=== PATIENT | female | born 1980 | race Caucasian/White ===

== ENCOUNTER 2024-09-15 00:53 | Emergency (ER) | payer BC, SELFPAY ==
[2024-09-15] VITALS (7 sets, daily range): BP systolic 115–143; BP diastolic 64–89; PULSE 73–83; RESP 18; TEMP 36.8; O2SAT 98–100; BMI 43.9
[2024-09-15 02:41] LABS: Hematocrit 46.1 % (36-47); Lymphocytes % 20.7 %; Mean Corpuscular HGB Conc 31.7 g/dL (30-55); Mean Corpuscular Hemoglobin 26.1 pg (27-33); Mean Corpuscular Volume 82.5 fl (85-98); Mean Platelet Volume 9.2 fL (7.4-10.4); Monocytes # 0.5 10^3/uL (0.2-0.9); Monocytes % 4.8 %; Neutrophils # 7.01 10^3/uL (1.8-7.7); Neutrophils % 74.4 %; Nucleated Red Blood Cells % 0 %; Platelet Count 271 10^3/cmm (157-399); Red Blood Count 5.59 10^6/uL (3.85-5.65); Red Cell Distribution Width 15.5 % (12.1-15.1); White Blood Count 9.42 10^3/uL (3.29-11.43)
[2024-09-15] MEDS: sodium chloride 0.9% 1,000 ML 999 ML IV (02:49)
--- NOTE | 2024-09-15 02:58 | CTR_ITS ---
PROCEDURE INFORMATION: Exam: CT Head Without Contrast Exam date and time: 09/15/2024 3:15 AM Age: 44 years old Clinical indication: Patient HX: C/O dizziness with n/v. ; Additional info: Dizzy TECHNIQUE: Imaging protocol: Computed tomography of the head without contrast. Radiation optimization: All CT scans at this facility use at least one of these dose optimization techniques: automated exposure control; mA and/or kV adjustment per patient size (includes targeted exams where dose is matched to clinical indication); or iterative reconstruction. COMPARISON: No relevant prior studies available. RADIATION DOSE METRICS: Total DLP (mGy-cm): 1289.78 FINDINGS: Brain: No hemorrhage. No mass effect or midline shift. No significant white matter disease. Cerebral ventricles: No ventriculomegaly. Paranasal sinuses: Visualized sinuses are unremarkable. No fluid levels. Mastoid air cells: Visualized mastoid air cells are well aerated. Bones: Unremarkable. No acute fracture. Soft tissues: Unremarkable. CT/CT head wo con* 20201 IMPRESSION: No acute intracranial findings.
--- NOTE | 2024-09-15 02:59 | ED_ITS ---
HPI - Neuro Symptoms/Deficit 2 General: Chief Complaint: Nausea/Vomiting/Diarrhea Stated Complaint: Dizzy/V/ Time Seen by Provider: 09/15/24 02:47 History of Present Illness: 44-year-old female presenting with verti ginous dizziness. This been going on for several days. Seems to wax and wane to some degree. Always worse with movement. She also states she has had some hearing loss in her left ear with some ringing. This is a more chronic thing. Related Data Previous Rx's Medication Instructions Recorded meclizine 25 mg tablet 25 mg PO TID PRN dizziness #90 tabs 09/15/24 NIH stroke score 2 NIHSS: Level Of Consciousness - 1a: 0 Level Of Consciousness Questions - 1b: Both Correct Level Of Consciousness Commands - 1c: Both Correct Best Gaze - 2: Normal Visual Cota - 3: No Visual Loss Facial Palsy - 4: N ormal Motor Arm Right - 5: No Drift Motor Arm Left - 5: No Drift Motor Leg Right - 6: No Drift Motor Leg Left - 6: No Drift Limb Ataxia - 7: A bsent Sensory - 8: Normal Best Language - 9: No Aphasia Dysarthia - 10: Normal Extinction And Inattention - 11: 0 Score: Total Score: 0 Physical Exam 2 Const: COMMON NORMALS: no acute distress GENERAL APPEARANCE: cooperative; not ill appearing and not frail appearing HENMT: COMMON NORMALS: normocephalic, atraumatic and Normal external nose present HEAD & SCALP: normocephalic and atraumatic FACE & SINUS: normal facial exam and face symmetric NOSE: Normal external nose present Eye: COMMON NORMALS: Equal, round and reactive pupils present and EOMs intact bilaterally PUPIL: Yes Equal, round and reactive pupils present Neck/C-Spine: GENERAL: Yes trachea midline Chest: CHEST: Yes Symmetrical chest wall rise Resp: COMMON NORMALS: normal respiratory effort, No retractions, No use of accessory muscles and clear to auscultation bilaterally AUSCULTATION: clear to auscultation bilaterally Cardio: COMMON NORMALS: regular rate and regular rhythm RATE: regular rate RHYTHM: regular rhythm GI: COMMON NORMALS: Normal to inspection, nondistended, normoactive bowel sounds present Extremity: COMMON NORMALS: no pedal edema Neuro: JAYCE COMA SCALE: document GCS findings [place] coma scale eye opening: Spontaneous Jayce coma scale verbal response: Orientated Jayce coma scale motor response: Obey commands [place] coma scale total score: 15 S ENSORY EXAM: Yes extremities (intact) Psych: COMMON NORMALS: speech normal SPEECH: Yes normal speech Skin: COMMON NORMALS: no rashes or lesions noted GENERAL SKIN EXAM: no rashes or lesions noted Course 2 Vital Signs: Vital signs: Vital Signs Temperature 98.2 F 09/15/24 01:30 Pulse Rate 73 09/15/24 05:08 Respiratory Rate 18 09/15/24 01:30 Blood Pressure 122/76 09/15/24 05:08 Pulse Oximetry 98 09/15/24 05:08 Oxygen Delivery Me thod Room Air 09/15/24 04:30 MDM - Neuro Symptoms/Deficit Medical Decision Making NIH stroke scale is 0. The patient does have some mild nystagmus. Dizziness worsens with head position change. Likely BPPV versus M?ni?re's disease. Treat accordingly. Head CT is negative. Other laboratory is not remarkable. Lab Data 09/15/24 02:34 09/15/24 02:[address] 09/15/24 02:58 IMPRESSION: No acute intracranial findings. Laboratory Results WBC 9.42 10^3/uL (3.29-11.43) 09/15/24 02:34 RBC 5.59 10^6/uL (3.85-5.65) 09/15/24 02:34 Hgb 14.60 g/dL (11.27-16.99) 09/15/24 02:34 Hct 46.1 % (36-47) 09/15/24 02:34 MCV 82.5 fl (85-98) L 09/15/24 02:34 MCH 26.1 pg (27-33) L 09/15/24 02:34 MCHC 31.7 g/dL (30-55) 09/15/24 02:34 RDW 15.5 % (12.1-15.1) H 09/15/24 02:34 Plt Count 271 10^3/cmm (157-399) 09/15/24 02:34 MPV 9.2 fL (7.4-10.4) 09/15/24 02:34 Neut % (Auto) 74.4 % 09/15/24 02:34 Lymph % (Auto) 20.7 % 09/15/24 02:34 [place] % (Auto) 4.8 % 09/15/24 02:34 Eos % (Auto) 0.0 % 09/15/24 02:34 Baso % (Auto) 0.0 % 09/15/24 02:34 Neut # (Auto) 7.01 10^3/uL (1.8-7.7) 09/15/24 02:34 Lymph # (Auto) 2.0 10^3/uL (0.8-4.8) 09/15/24 02:34 [place] # (Auto) 0.5 10^3/uL (0.2-0.9) 09/15/24 02:34 Eos # (Auto) 0.0 10^3/uL (0.0-0.8) 09/15/24 02:34 Baso # (Auto) 0.0 10^3/uL (0.0-0.1) 09/15/24 02:34 Nucleated RBC % (auto) 0 % 09/15/24 02:34 Nucleated RBCs # 0.0 /100WBC 09/15/24 02:34 Sodium 139 mmol/L (136-145) 09/15/24 02:34 Potassium 4.0 mmol/L (3.5-5.1) 09/15/24 02:34 Chloride 104 mmol/L (98-107) 09/15/24 02:34 Carbon Dioxide 24 mmol/L (22-29) 09/15/24 02:34 Anion Gap 15.0 (5-19) 09/15/24 02:34 BUN 15 mg/dL (6-20) 09/15/24 02:34 Creatinine 0.5 mg/dL (0.5-0.9) 09/15/24 02:34 GFR Calculation 133.4 mL/min (90-130) H 09/15/24 02:34 Glucose 132 mg/dL (65-115) H 09/15/24 02:34 Calculated Osmolality 291 mOsm/kg (285-295) 09/15/24 02:34 Calcium 9.0 mg/dL (8.5-10.5) 09/15/24 02:34 Total Bilirubin 0.6 mg/dL (0.15-1.2) 09/15/24 02:34 AST 17 U/L (0-32) 09/15/24 02:34 ALT 22 U/L (0-33) 09/15/24 02:34 Alkaline Phosphatase 74 U/L (35-105) 09/15/24 02:34 C-Reactive Protein 4.6 mg/L (0.0-4.9) 09/15/24 02:34 Total Protein 7.3 g/dL (6.6-8.7) 09/15/24 02:34 Albumin 4.6 g/dL (3.5-5.2) 09/15/24 02:34 Globulin 2.7 g/dL (1.3-4.6) 09/15/24 02:34 Lipase 32 U/L (13-60) 09/15/24 02:34 HCG, Qual Negative (Negative) 09/15/24 02:34 Urine Color Yellow (Yellow) 09/15/24 03:07 Urine Appearance Clear (CLEAR) 09/15/24 03:07 Urine pH 7.0 (5-7) 09/15/24 03:07 Ur Specific [place] 1.012 (1.005-1.030) 09/15/24 03:07 Urine Protein Negative (Negative) 09/15/24 03:07 Urine Glucose (UA) 3+ (Normal) H 09/15/24 03:07 Urine Ketones Trace (Negative) 09/15/24 03:07 Urine Blood Negative (Negative) 09/15/24 03:07 Urine Nitrate Negative (Negative) 09/15/24 03:07 Urine Bilirubin Negative (Negative) 09/15/24 03:07 Urine Urobilinogen 0.2 mg/dL (Negative) 09/15/24 03:07 Ur Leukocyte Esterase Negative (Negative) 09/15/24 03:07 Urine RBC 0-2 /hpf (0-2) 09/15/24 03:07 Urine WBC 0-5 /hpf (0-5) 09/15/24 03:07 Ur Squamous Epith Cells 0-5 /hpf (0-5) 09/15/24 03:07 Amorphous Sediment Not Reportable 09/15/24 03:07 Urine Bacteria None seen /hpf (NONE) 09/15/24 03:07 Hyaline Casts 0-4 /lpf H 09/15/24 03:07 All radiology interpretation(s) finalized by discharge Discharge Plan Discharge Patient Disposition: Home Clinical Impression: Vertigo Condition: Stable Prescriptions: New meclizine 25 mg tablet 25 mg PO TID PRN (Reason: dizziness) Qty: 90 0RF Discharge Orders: Discharge ED (Routine); Ordered 09/15/24 Ordered By: Sesar Patel Patient Instructions: Vertigo (ED), Benign Paroxysmal Positional Vertigo (ED), Opioid Safety, Pain Management Activity Restrictions/Additional Instructions: Take meclizine 3 times daily until symptoms improve. Follow-up with your doctor at the beginning of the week, call on Tuesday for an appointment, as further outpatient testing may be needed. Return for vision problems, language problems, speech problems, weakness, other concerning symptoms. Stay hydrated. Coding Level of Care Code ED Fire Alarm Technician for Margret Tong
[2024-09-15 03:01] LABS: HCG, Serum Qual Negative (Negative)
[2024-09-15 03:05] LABS: Alanine Aminotransferase 22 U/L (0-33); Albumin Level 4.6 g/dL (3.5-5.2); Alkaline Phosphatase 74 U/L (35-105); Aspartate Amino Transferase 17 U/L (0-32); Blood Urea Nitrogen 15 mg/dL (6-20); C Reactive Protein 4.6 mg/L (0.0-4.9); Carbon Dioxide 24 mmol/L (22-29); Chloride 104 mmol/L (98-107); Creatinine Clr Calc Pharmacy 165.0997; Globulin 2.7 g/dL (1.3-4.6); Glomerular Filtration Rate 133.4 mL/min (90-130); Glucose 132 mg/dL (65-115); Lipase 32 U/L (13-60); Osmolality Calculated 291 mOsm/kg (285-295); Sodium 139 mmol/L (136-145); Total Bilirubin 0.6 mg/dL (0.15-1.2); Total Protein 7.3 g/dL (6.6-8.7)
[2024-09-15] MEDS: meclizine 25 mg tablet PO (03:16)
[2024-09-15 03:31] LABS: Bilirubin Urine Negative (Negative); Blood Urine Negative (Negative); Glucose Urine UA 3+ (Normal); Ketones Urine Trace (Negative); Leukocyte Esterase Urine Negative (Negative); Nitrate Urine Negative (Negative); Protein Urine Negative (Negative); Specific Gravity, Urine 1.012 (1.005-1.030); Urine Appearance Clear (CLEAR); Urine Color Yellow (Yellow); Urobilinogen Urine 0.2 mg/dL (Negative)
[2024-09-15 03:36] LABS: Add Urine Microscopic? YES; Bacteria Urine None Seen /hpf; Hyaline Casts Urine 0-4 /lpf; RBC Urine 0-2 /hpf (0-2); Squamous Epithelial Cell Urine 0-5 /hpf (0-5); WBC Urine 0-5 /hpf (0-5)
== END 2024-09-15 05:11 | disposition home or self-care (01) ==
PROVIDERS: Emergency Provider Emergency Medicine
DX: R42 Dizziness and giddiness (principal)
CPT/HCPCS: 36415; 70450; 80053; 81001; 83690; 84703; 85025; 86140; 99284; J7030; J8597

== ENCOUNTER 2025-04-23 06:46 | Day surgery (SDC) | payer BC, SELFPAY ==
[2025-04-23 06:59] VITALS: BP 112/77; PULSE 75; RESP 18; TEMP 36.6; O2SAT 98; BMI 43.9
[2025-04-23 07:06] LABS: OR HCG Qualitative Urine Negative (Negative)
[2025-04-23] MEDS: sodium chloride 0.9% 1,000 ML 15 ML IV (07:15)
[2025-04-23 07:18] LABS: Glucose Point of Care 110 mg/dL (70-110)
--- NOTE | 2025-04-23 07:53 | W.PM.OPSFHP ---
Same Day Surgery H&P Indication for Procedure/HPI DATE OF PROCEDURE: April 23, 2025 CHIEF COMPLAINT/INDICATIONFOR SURGICAL PROCEDURE: screening colonoscopy PREOP DIAGNOSIS: screening colonoscopy PLANNED PROCEDURE: Operation Date: 04/23/25 08:00 Proposed Procedures p Colonoscopy 39850 G0105, Z12.11(Not Applicable) - Celio Lawson MD Medications/Allergies* Home Medications ?Medication ?Instructions ?Recorded ?Confirmed ?Type albuterol sulfate 90 mcg/actuation See Rx Instructions .Route 03/04/25 04/18/25 History aerosol inhaler .COMPLEX PRN Shortness Of Breath Or Wheezing bupropion HCl 150 mg 24 hr tablet, 150 mg PO QAM 03/04/25 04/18/25 History extended release (Wellbutrin XL) empagliflozin 25 mg tablet 25 mg PO QAM 03/04/25 04/18/25 History (Jardiance) epinephrine 0.3 mg/0.3 mL 0.3 mg IM ONCE PRN anaphylaxsis 03/04/25 04/18/25 History injection, auto-injector naproxen 500 mg tablet 500 mg PO BID PRN Pain 03/04/25 04/18/25 History rosuvastatin 5 mg tablet (Crestor) 5 mg PO QDAY 03/04/25 04/18/25 History trazodone 50 mg tablet 100 mg PO QDAY 03/04/25 04/18/25 History triamterene 37.5 1 cap PO QAM 03/04/25 04/18/25 History mg-hydrochlorothiazide 25 mg capsule Allergies/Adverse Reactions Allergy/AdvReac Type Severity Reaction Status Date / Time ipratropium (From Atrovent) Allergy ADR-Dizzine Verified 04/23/25 06:56 ss venlafaxine (From Effexor) Allergy ADR-Dizzine Verified 04/23/25 06:56 ss Current Medications: Generic Name Dose Route Start Last Admin Trade Name Freq PRN Reason Stop Dose Admin Sodium Chloride 1,000 mls @ 15 mls/hr 04/23/25 06:47 04/23/25 07:15 Sodium Chloride 0.9% IV 04/24/25 06:46 15 mls/hr .Q24H PRN Administration COLONOSCOPY FLUIDS Pertinent History/Comorbid Conditions* Family History (Updated 03/04/25 @ 08:17 by Mirian Harrill, CT) Diabetes Father Breast cancer Mother Social History Smoking and tobacco/nicotine status: never used tobacco/nicotine Pertinent Exam Findings alert, oriented x 3, clear to auscultation bilaterally, regular rate & rhythm and procedure specific exam findings Abdomen soft, nt, nd Recommendations Risks and benefits of procedure reviewed Surgery/Procedure today Coding Level of Care Code Acute Code for Chg Ran
--- NOTE | 2025-04-23 07:55 | ANES.PREANE2 ---
Pre-Anesthetic Assessment Height/Weight: Height 1.57 m Weight 108.862 kg Temp Pulse Resp BP Pulse Ox O2 Del Method 97.8 F 75 18 112/77 98 Room Air 04/23/25 06:59 04/23/25 06:59 04/23/25 06:59 04/23/25 06:59 04/23/25 06:59 04/23/25 06:59 Preop Diagnosis: screening colonoscopy Operation Date: 04/23/25 08:00 Proposed Procedures p Colonoscopy 00668 G0105, Z12.11(Not Applicable) - Celio Lawson MD Familial anesthetic complications: Unexplained Fever Was Beta Radha taken within 24 hours: N/A Was Clonidine taken within 24 hours: N/A Last intake: Intake Last Liquid Date 04/22/25 Last Liquid Time 23:45 Last Solid Date 04/21/25 Last Solid Time 23:45 Social Alcohol and No tobacco Occasion alcohol and Marijuana gummies Exam alert, oriented x 3, clear to auscultation bilaterally and regular rate & rhythm Airway Submandibular: within normal limits Cervical ROM: within normal limits Mallampati: Class II Dentition: full History/ROS No significant history except as noted and No significant complaints Pulmonary Asthma CV/HEM None reported None reported Hepatic None reported GI None reported Metabolic Diabetes Mellitus Neuropsych Anxiety, Depression and Seizure no seizures x 6 years, fever related, no seizure meds Anesthetic Plan ASA status: 3 Anesthesia: MAC Risk of > 500 ml blood loss (7ml/kg in children): No Medications/Allergies Home Medications ?Medication ?Instructions ?Recorded ?Confirmed ?Last Taken ?Type albuterol sulfate 90 mcg/actuation See Rx Instructions .Route 03/04/25 04/18/25 04/22/25 06:00 History aerosol inhaler .COMPLEX PRN Shortness Of Breath Or Wheezing bupropion HCl 150 mg 24 hr tablet, 150 mg PO QAM 03/04/25 04/18/25 04/22/25 06:00 History extended release (Wellbutrin XL) empagliflozin 25 mg tablet 25 mg PO QAM 03/04/25 04/18/25 04/22/25 06:00 History (Jardiance) epinephrine 0.3 mg/0.3 mL 0.3 mg IM ONCE PRN anaphylaxsis 03/04/25 04/18/25 Unknown History injection, auto-injector naproxen 500 mg tablet 500 mg PO BID PRN Pain 03/04/25 04/18/25 04/22/25 06:00 History rosuvastatin 5 mg tablet (Crestor) 5 mg PO QDAY 03/04/25 04/18/25 04/22/25 06:00 History trazodone 50 mg tablet 100 mg PO QDAY 03/04/25 04/18/25 04/22/25 06:00 History triamterene 37.5 1 cap PO QAM 03/04/25 04/18/25 04/22/25 06:00 History mg-hydrochlorothiazide 25 mg capsule Allergies Allergy/AdvReac Type Severity Reaction Status Date / Time ipratropium (From Atrovent) Allergy ADR-Dizzine Verified 04/23/25 06:56 ss venlafaxine (From Effexor) Allergy ADR-Dizzine Verified 04/23/25 06:56 ss Current Medications Generic Name Dose Route Start Last Admin Trade Name Freq PRN Reason Stop Dose Admin Sodium Chloride 1,000 mls @ 15 mls/hr 04/23/25 06:47 04/23/25 07:15 Sodium Chloride 0.9% IV 04/24/25 06:46 15 mls/hr .Q24H PRN Administration COLONOSCOPY FLUIDS PFSH Anesthesia Family History (Updated 03/04/25 @ 08:17 by LUÍS Kan) Mother Breast cancer Father Diabetes Social History (Updated 03/04/25 @ 08:17 by LUÍS Kan) Smoking and tobacco/nicotine status: never used tobacco/nicotine
[2025-04-23 09:05] VITALS: BP 108/62; PULSE 68; RESP 18; TEMP 36.3; O2SAT 100
--- NOTE | 2025-04-23 09:20 | ANE.PACU2 ---
Inpatient post-anesthesia follow up: Airway intact: Yes Vital signs: Temperature 97.4 F Pulse Rate 68 Respiratory Rate 18 Blood Pressure 108/62 Pulse Oximetry 100 Oxygen Delivery Me thod Room Air Oxygen Flow Rate Fraction of Inspir ed Oxygen Hydration adequate: Yes Nausea and vomiting: No Pain level: 1 Mental status: Baseline
== END 2025-04-23 09:24 | disposition home or self-care (01) ==
PROVIDERS: Anesthesiology; PCP Family Medicine; Visit Provider Student in an Organized Health Care Education/Training Program
PROC: 0DJD8ZZ Inspection of Lower Intestinal Tract, Via Natural or Artificial Opening Endoscopic (ICD-10-PCS; CPT 45378; principal; 2025-04-23 08:00)
DX: Z12.11 Encounter for screening for malignant neoplasm of colon (principal); D12.5 Benign neoplasm of sigmoid colon; E11.9 Type 2 diabetes mellitus without complications; F41.9 Anxiety disorder, unspecified; F32.A Depression, unspecified; Z79.899 Other long term (current) drug therapy; Z88.8 Allergy status to other drugs, medicaments and biological substances
CPT/HCPCS: 36416; 45381; 45385; 81025; 82962; 88305; J2704; J7030

== ENCOUNTER 2025-09-11 15:36 | Outpatient (CLI) | payer BC, SELFPAY ==
--- NOTE | 2025-09-11 15:44 | MM_ITS ---
WS: [id number] BILATERAL 3D TOMOSYNTHESIS DIGITAL SCREENING MAMMOGRAPHY WITH CAD CLINICAL INFORMATION: ANNUAL SCREENING HISTORY: Screening mammogram. No current complaints. COMPARISON: None available TECHNIQUE: Bilateral CC and MLO views. FINDINGS: The breasts are composed of heterogeneous fibroglandular density tissue, which can limit the detection of small underlying mass lesions. No suspicious mass, asymmetry, calcifications, or architectural distortion. No evidence of malignancy. MM/MM scr tomosynthesis 39514 IMPRESSION: DENSITY: The breasts are heterogeneously dense, which may obscure small masses. BI-RADS: 1 - Negative FOLLOW UP: 1 Year Follow-up Recommend return to annual screening mammography.
== END 2025-09-11 15:37 | disposition home or self-care (01) ==
LOC: RAD 15:37
PROVIDERS: PCP Family Medicine; Visit Provider Family Medicine
DX: Z12.31 Encounter for screening mammogram for malignant neoplasm of breast (principal); R92.333 Mammographic heterogeneous density, bilateral breasts; R92.323 Mammographic fibroglandular density, bilateral breasts
CPT/HCPCS: 77063; 77067

== ENCOUNTER 2025-10-30 15:30 | Outpatient (CLI) | payer BC, SELFPAY | END 2025-10-30 15:31 | disposition home or self-care (01) | LOC: SLEEP 15:34 | PROVIDERS: PCP Family Medicine; Referring Provider Family Medicine; Visit Provider Internal Medicine Pulmonary Disease | DX: G47.19 Other hypersomnia (principal) | CPT/HCPCS: G0399 ==